=== PATIENT | female | born 1965 | race American Indian/Alaskan Native ===

== ENCOUNTER 2016-09-02 13:59 | Outpatient (CLI) | payer MEDICAID ==
--- NOTE | 2016-09-02 16:09 | XRAY Report ---
RIGHT HIP AND PELVIS: 09/02/2016 CLINICAL INDICATION: Right hip pain. FINDINGS: Frontal view of the hips and pelvis and frogleg lateral view of the right hip were obtaine d. There is moderate osteoarthritis of the right hip, with some remodeling of the femoral head. There is no evidence of acute fracture or dislocation. Tubal ligation clips and surgical clips are present . IMPRESSION: MODERATE OSTEOARTHRITIS OF THE RIGHT HIP, WITH MILD REMODELING OF THE RIGHT FEMORAL HEAD . JOB #: [id number] EXT JOB #:[id number]
== END 2016-09-02 14:00 | disposition home or self-care (01) ==
LOC: DI.N 13:59
PROVIDERS: ATTEND Family Medicine
DX: M16.11 Unilateral primary osteoarthritis, right hip (principal)

== ENCOUNTER 2016-12-14 09:26 | Outpatient (CLI) | payer MEDICAID ==
--- NOTE | 2016-12-14 12:43 | XRAY Report ---
THREE-VIEW RIGHT KNEE: 12/14/2016 CLINICAL INDICATION: Pain. FINDINGS: AP, lateral, sunrise views of the right knee demonstrate mild osteoarthritis, with small m arginal osteophytes. There is no evidence of fracture or dislocation. No effusion is present. IMPRESSION: MILD RIGHT KNEE OSTEOARTHRITIS. JOB #: [id number] EXT JOB #:[id number]
== END 2016-12-14 09:27 | disposition home or self-care (01) ==
LOC: DI.N 09:26
PROVIDERS: ATTEND Physician Assistant Medical
DX: M17.11 Unilateral primary osteoarthritis, right knee (principal)

== ENCOUNTER 2018-07-13 09:00 | Outpatient (CLI) | payer SELFPAY ==
--- NOTE | 2018-07-13 12:54 | XRAY Report ---
Reason: OSTEOARTHRITIS HIP,RIGHT Procedure Date: 07/13/2018 Accession Number: [id number] / [id number] Procedure: XRN - Hip w/Pelvis 2-3V RT CPT Code: FULL RESULT: EXAM: RIGHT HIP RADIOGRAPHY EXAM DATE: 07/13/2018 09:13 AM. CLINICAL HISTORY: Right hip osteoarthritis. COMPARISON: HIP W/PELVIS 2-3V RT 09/02/2016 2:16 PM. TECHNIQUE: 2 views. FINDINGS: Bones: Stable abnormal configuration of the right hip and lateral aspect of the right iliac bone. Posttraumatic and postsurgical changes involving the right femoral head, femoral neck and intratrochanteric region. Stable widening of the subcapital femoral neck. Joints: The left hip joint and sacroiliac joints are intact. Right hip joint space narrowing with femoral head and acetabular subchondral sclerosis, compatible with degenerative changes. Soft Tissues: Table postsurgical changes in the right hip soft tissues and in the pelvis. IMPRESSION: 1. Posttraumatic osteoarthritis of the right hip, unchanged when compared to the prior study. 2. No acute findings. 3. Other stable chronic post surgical changes. RADIA
== END 2018-07-13 09:01 | disposition home or self-care (01) ==
LOC: DI.N 09:00
PROVIDERS: ATTEND Physician Assistant Medical
DX: M16.51 Unilateral post-traumatic osteoarthritis, right hip (principal)

== ENCOUNTER 2018-10-01 | Outpatient (CLI) | payer MEDICAID | END 2018-10-01 23:59 | disposition home or self-care (01) ==

== ENCOUNTER 2019-02-07 10:22 | Outpatient (CLI) | payer MEDICAID | END 2019-02-07 10:23 | disposition short-term general hospital (02) | LOC: EMS 10:22 | PROVIDERS: ATTEND Surgery | DX: R07.9 Chest pain, unspecified (principal); M25.512 Pain in left shoulder; M54.9 Dorsalgia, unspecified; R05 Cough | CPT/HCPCS: A0425; A0429; A0999 ==

== ENCOUNTER 2019-10-07 03:48 | Outpatient (CLI) | payer MEDICAID | END 2019-10-07 03:49 | disposition short-term general hospital (02) | LOC: EMS 03:48 | PROVIDERS: ATTEND Surgery | DX: R10.32 Left lower quadrant pain (principal); R11.0 Nausea | CPT/HCPCS: A0425; A0427; A0999 ==

== ENCOUNTER 2019-10-23 07:22 | Outpatient (CLI) | payer MEDICAID | END 2019-10-23 07:23 | disposition critical access hospital (66) | LOC: EMS 07:22 | PROVIDERS: ATTEND Surgery | DX: R10.32 Left lower quadrant pain (principal); R10.11 Right upper quadrant pain | CPT/HCPCS: A0425; A0429; A0999 ==

== ENCOUNTER 2019-10-23 07:42 | Emergency (ER) | payer MEDICAID ==
[2019-10-23] MEDS ORDERED: KETOROLAC 30 MG/ML VIAL IVP STA (07:57)
[2019-10-23] MEDS ORDERED: ONDANSETRON 4 MG/2 ML VIAL IVP STA (07:57)
[2019-10-23] MEDS ORDERED: SODIUM CHLORIDE 0.9% 1,000 ML IV STA (07:57)
--- NOTE | 2019-10-23 08:00 | ED Physician Documentation ---
PD HPI ABD PAIN - Stated complaint Stated Complaint: FLANK PAIN - Chief complaint Chief Complaint: Abd Pain - History obtained from History obtained from: Patient - History of Present Illness Timing - onset: Today Timing - duration: Hours Timing - details: Abrupt onset, Still present Quality: Sharp, Pain Location: LUQ Radiation: Left flank Improved by: Meds Worsened by: Other (nothing) Associated symptoms: Nausea Similar symptoms before: Diagnosis (kidney stone on the left 8mm) Recently seen: Emergency Dept - Additional information Additional information: 54-year-old female seen earlier in the month for a 8 mm left kidney stone that was in the proximal ureter has had recurrence of her pain and she is presents to the emergency department today with ongoing renal colic. 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 - Present Medications Home Medications: Ambulatory Orders Medication Instructions Recorded Confirmed Sulfamethoxazole/Trimethoprim 1 each PO BID #20 tablet 04/02/14 [Bactrim Ds Tablet] cephALEXin [Keflex] 500 mg PO Q6H #40 capsule 04/02/14 Ondansetron Odt [Zofran] 4 mg TL Q6H PRN #10 tablet 10/05/19 Tamsulosin [Flomax] 0.4 mg PO DAILY #10 capsule 10/05/19 oxyCODONE [Roxicodone] 5 - 10 mg PO Q6H PRN #14 tablet 10/05/19 Docusate Sodium 250Mg Capsule 250 mg PO DAILY #20 capsule 10/23/19 [Colace 250Mg Capsule] Hydrocodone/Acetaminophen 1 - 2 each PO Q6H PRN #14 tablet 10/23/19 [Hydrocodone-Acetamin 5-325 mg] Tamsulosin [Flomax] 0.4 mg PO DAILY #7 capsule 10/23/19 - Allergies Allergies/Adverse Reactions: Allergies Allergy/AdvReac Type Severity Reaction Status Date / Time No Known Drug Allergies Allergy Verified 10/05/19 02:07 - Social History Does the pt smoke?: Yes Smoking Status: Current every day smoker Does the pt drink ETOH?: No - Immunizations Immunizations are current?: No - POLST Patient has POLST: No PD ED PE NORMAL - Vitals Vital signs reviewed: Yes (Hypertensive) - General General: Alert and oriented X 3, Well developed/nourished, Other (Patient appears to be in pain) - HEENT HEENT: Atraumatic, PERRL, EOMI - Neck Neck: Supple, no meningeal sign, No bony TTP - Cardiac Cardiac: RRR, No murmur - Respiratory Respiratory: No respiratory distress, Clear bilaterally - Abdomen Abdomen: Soft, Non tender - Back Back: No CVA TTP, No spinal TTP - Derm Derm: Normal color, Warm and dry, No rash - Extremities Extremities: No deformity, No edema, No calf tenderness / cord - Neuro Neuro: Alert and oriented X 3, 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, No motor deficit, No sensory deficit, Normal speech Eye Opening: Spontaneous Motor: Obeys Commands Verbal: Oriented GCS Score: 15 - Psych Psych: Normal mood, Normal affect Results - Vitals Vitals: Vital Signs - 24 hr 10/23/19 10/23/19 10/23/19 07:48 09:06 11:00 Temperature 36.4 C L Heart Rate 75 87 80 Respiratory 21 12 13 Rate Blood Pressure 153/96 H 161/81 H 150/91 H O2 Saturation 100 95 96 10/23/19 12:22 Temperature 37.0 C Heart Rate 68 Respiratory 17 Rate Blood Pressure 154/83 H O2 Saturation 98 Oxygen O2 Source Room air - Labs Labs: Laboratory Tests 10/23/19 10/23/19 10/23/19 07:59 07:59 09:55 WBC 7.1 RBC 4.78 Hgb 13.1 Hct 41.4 MCV 86.6 MCH 27.4 MCHC 31.6 L RDW 14.6 Plt Count 219 MPV 9.9 Neut # (Auto) 4.6 Lymph # (Auto) 1.8 [place] # (Auto) 0.5 Eos # (Auto) 0.1 Baso # (Auto) 0.0 Absolute Nucleated RBC 0.00 Nucleated RBC % 0.0 Sodium 138 Potassium 3.4 L Chloride 105 Carbon Dioxide 23 Anion Gap 10.0 BUN 12 Creatinine 0.6 Estimated GFR (MDRD) 105 Glucose 119 H Calcium 8.6 Total Bilirubin 0.9 AST 18 ALT 20 Alkaline Phosphatase 62 Total Protein 6.9 Albumin 3.8 Globulin 3.1 Albumin/Globulin Ratio 1.2 Lipase 35 Urine Color YELLOW Urine Clarity CLOUDY Urine pH 7.0 Ur Specific Rawlings 1.020 Urine Protein NEGATIVE Urine Glucose (UA) NEGATIVE Urine Ketones NEGATIVE Urine Occult Blood LARGE H Urine Nitrite NEGATIVE Urine Bilirubin NEGATIVE Urine Urobilinogen 0.2 (NORMAL) Ur Leukocyte Esterase NEGATIVE Urine RBC TNTC H Urine WBC 0-3 Ur Squamous Epith Cells RARE Squamous Urine Bacteria Rare Ur Microscopic Review INDICATED Urine Culture Comments NOT INDICATED Urine HCG, Qual NEGATIVE - Rads (name of study) kub Radiology: Prelim report reviewed (Impression: Distal migration of previously seen left ureteral calculus, now at the distal left ureter ureter.), EMP read indepedently, See rad report Procedures - Bedside sono Bedside sono by EMP: With use bedside ultrasound the left kidney is imaged it is sonographically nontender there is obvious and significant hydronephrosis present PD MEDICAL DECISION MAKING - ED course Complexity details: reviewed old records, reviewed results, re-evaluated patient, considered differential, d/w patient ED course: 54-year-old female with recurrent pain has a large stone 8 mm that is now in the distal ureter right at the UVJ. She is administered saline and Toradol as well as Dilaudid with improvement in her pain. I discussed with the patient the need to call the urologist today as she still may need to have the stone removed. She provided further pain medication and hydration. Departure - Departure Disposition: 01 Home, Self Care Clinical Impression: Ureterolithiasis Condition: Stable Instructions: ED Stone Renal W Colic Follow-Up: Mary Cline ARNP, EQUIPMENT INSTALLATION PROFESSIONAL-C [Primary Care Provider] - Karl Miner MD [Provider Admit Priv/Credential] - Prescriptions: Docusate Sodium 250Mg Capsule [Colace 250Mg Capsule] 250 mg PO DAILY #20 capsule Tamsulosin [Flomax] 0.4 mg PO DAILY #7 capsule Hydrocodone/Acetaminophen [Hydrocodone-Acetamin 5-325 mg] 1 - 2 each PO Q6H PRN #14 tablet PRN Reason: Pain Discharge Date/Time: 10/23/19 12:22
[2019-10-23 08:17] LABS: BASOPHILS % (AUTO) 0.4 %; EOSINOPHILS # (AUTO) 0.1 10^3/uL (0.0-0.7); EOSINOPHILS % (AUTO) 1.7 %; HGB - HEMOGLOBIN 13.1 g/dL (12.0-16.0); LYMPHOCYTES # (AUTO) 1.8 10^3/uL (1.5-3.5); LYMPHOCYTES % (AUTO) 25.6 %; MEAN CORPUSCULAR HEMOGLOBIN 27.4 pg (27.0-31.0); MEAN CORPUSCULAR HGB CONC 31.6 g/dL (32.0-36.0); MEAN CORPUSCULAR VOLUME 86.6 fL (81.0-99.0); MEAN PLATELET VOLUME 9.9 fL (7.9-10.8); MONOCYTES # (AUTO) 0.5 10^3/uL (0.0-1.0); MONOCYTES % (AUTO) 6.5 %; NEUTROPHILS # (AUTO) 4.6 10^3/uL (1.5-6.6); NEUTROPHILS % (AUTO) 65.5 %; PLT - PLATELET COUNT 219 10^3/uL (130-450); RED BLOOD COUNT 4.78 10^6/uL (4.20-5.40); RED CELL DISTRIBUTION WIDTH 14.6 % (12.0-15.0); WHITE BLOOD COUNT 7.1 x10^3/uL (4.8-10.8)
[2019-10-23 08:31] LABS: ALBUMIN 3.8 g/dL (3.2-5.5); ALBUMIN/GLOBULIN RATIO 1.2 (1.0-2.2); BILIRUBIN,TOTAL 0.9 mg/dL (0.2-1.0); CALCIUM 8.6 mg/dL (8.5-10.3); CREATININE 0.6 mg/dL (0.4-1.0); TOTAL PROTEIN 6.9 g/dL (6.7-8.2)
--- NOTE | 2019-10-23 08:46 | XRAY Report ---
PROCEDURE: Abdomen 1 View X-Ray INDICATIONS: 8mm stone on left still there TECHNIQUE: 1 view of the abdomen were acquired. COMPARISON: 10/05/2019 CT abdomen and pelvis FINDINGS: Previously seen calculus in the proximal left ureter has migrated distally, now projecting over the d istal ureter adjacent to the left sacral ala and left sacroiliac joint. The calculus measures approxi mately 7 mm. IMPRESSION: Distal migration of previously seen left ureteral calculus, now at the distal left urete r. Reviewed by: Zeeshan Hartman MD on 10/23/2019 8:45 AM PDT Approved by: Zeeshan Hartman MD on 10/23/2019 8:45 AM PDT Station ID: [id number]
[2019-10-23] MEDS ORDERED: HYDROmorphone 1 MG/ML CARPUJECT IVP STA (08:48)
[2019-10-23 10:14] LABS: BILIRUBIN,URINE NEGATIVE (NEGATIVE); GLUCOSE, URINE (UA) NEGATIVE (NEGATIVE); KETONES,URINE (UA) NEGATIVE (NEGATIVE); LEUKOCYTE ESTERASE, URINE NEGATIVE (NEGATIVE); NITRITE,URINE NEGATIVE (NEGATIVE); OCCULT BLOOD,URINE LARGE (NEGATIVE); PROTEIN,URINE NEGATIVE (NEGATIVE); UROBILINOGEN,URINE 0.2 (NORMAL) E.U./dL (NORMAL)
[2019-10-23 10:24] LABS: CLARITY,URINE CLOUDY (CLEAR); HCG UR QUAL NEGATIVE
[2019-10-23 11:05] LABS: RBC,URINE TNTC /HPF (0-5); SQUAMOUS EPITHELIAL CELL,UR RARE Squamous (<= Few)
[2019-10-23 11:06] LABS: BACTERIA,URINE Rare /HPF (None Seen)
[2019-10-23 12:25] VITALS: BP 154/83
== END 2019-10-23 12:22 | disposition home or self-care (01) ==
LOC: EDUNIT# → ED 07:42
DX: N20.1 Calculus of ureter (principal); F17.200 Nicotine dependence, unspecified, uncomplicated
CPT/HCPCS: 36415; 74018; 80053; 81001; 81025; 83690; 85025; 96361; 96374; 96375; 99284; J1170; 81003; 87086

== ENCOUNTER 2020-08-17 08:00 | Outpatient (CLI) | payer MEDICAID ==
[2020-08-17 18:03] LABS: BASOPHILS % (AUTO) 0.7 %; EOSINOPHILS # (AUTO) 0.1 10^3/uL (0.0-0.7); EOSINOPHILS % (AUTO) 2.3 %; HGB - HEMOGLOBIN 14.1 g/dL (12.0-16.0); LYMPHOCYTES # (AUTO) 2.1 10^3/uL (1.5-3.5); LYMPHOCYTES % (AUTO) 35.6 %; MEAN CORPUSCULAR HEMOGLOBIN 27.5 pg (27.0-31.0); MEAN CORPUSCULAR HGB CONC 30.7 g/dL (32.0-36.0); MEAN CORPUSCULAR VOLUME 89.8 fL (81.0-99.0); MEAN PLATELET VOLUME 10.6 fL (7.9-10.8); MONOCYTES # (AUTO) 0.3 10^3/uL (0.0-1.0); MONOCYTES % (AUTO) 5.2 %; NEUTROPHILS # (AUTO) 3.4 10^3/uL (1.5-6.6); PLT - PLATELET COUNT 244 10^3/uL (130-450); RED BLOOD COUNT 5.12 10^6/uL (4.20-5.40); RED CELL DISTRIBUTION WIDTH 15.1 % (12.0-15.0)
[2020-08-17 18:24] LABS: ALBUMIN 4.1 g/dL (3.2-5.5); ALBUMIN/GLOBULIN RATIO 1.4 (1.0-2.2); ALKALINE PHOSPHATASE 52 IU/L (42-121); ALT ALANINE AMINOTRANSFERASE 26 IU/L (10-60); AST ASPARTATE AMINOTRANSFERASE 23 IU/L (10-42); BILIRUBIN,TOTAL 1.1 mg/dL (0.2-1.0); BUN - BLOOD UREA NITROGEN 14 mg/dL (6-20); CARBON DIOXIDE - CO2 23 mmol/L (21-32); CHLORIDE 104 mmol/L (101-111); CHOL/HDL RATIO 4.3 (<4.4); CHOLESTEROL 179 mg/dL; CREATININE 0.6 mg/dL (0.4-1.0); GFR - MDRD 105 (>89); GLUCOSE 100 mg/dL (70-100); HDL CHOLESTEROL 42 mg/dL; LDL CHOLESTEROL,CALCULATED 106 mg/dL; LDL/HDL RATIO 2.5 (<4.4); POTASSIUM 4.1 mmol/L (3.5-5.0); SODIUM 137 mmol/L (135-145); TRIGLYCERIDES 153 mg/dL; VLDL CHOLESTEROL 31 mg/dL
[2020-08-17 18:36] LABS: THYROID STIMULATING HORMONE 1.08 uIU/mL (0.34-5.60)
[2020-08-17 20:39] LABS: ESTIMATED AVERAGE GLUCOSE 140 mg/dL (70-100); HEMOGLOBIN A1c% 6.5 % (4.27-6.07)
== END 2020-08-17 23:59 | disposition home or self-care (01) ==
LOC: LAB.WCP 08:00
PROVIDERS: ATTEND Family Medicine
DX: Z00.00 Encounter for general adult medical examination without abnormal findings (principal); N23 Unspecified renal colic; R73.9 Hyperglycemia, unspecified; M25.559 Pain in unspecified hip; I10 Essential (primary) hypertension; F10.10 Alcohol abuse, uncomplicated
CPT/HCPCS: 36415; 80053; 80061; 83036; 83721; 84443; 85025

== ENCOUNTER 2020-10-09 10:13 | Outpatient (CLI) | payer MEDICAID | END 2020-10-09 10:14 | disposition home or self-care (01) | LOC: LAB 10:13 | PROVIDERS: ATTEND Family Medicine | DX: Z53.9 Procedure and treatment not carried out, unspecified reason (principal); M12.851 Other specific arthropathies, not elsewhere classified, right hip ==

== ENCOUNTER 2020-10-09 10:21 | Outpatient (CLI) | payer MEDICAID ==
--- NOTE | 2020-10-09 15:08 | XRAY Report ---
PROCEDURE: Hip w/Pelvis 2-3V RT INDICATIONS: ARTHRITIS, RIGHT HIP TECHNIQUE: AP pelvis with lateral view(s) of the right hip(s). COMPARISON: X-ray pelvis and hip 07/13/2018 FINDINGS: Bones: No fractures or dislocations. Pelvic ring appears intact. No suspicious bony lesions. Lyn re degenerative disc space narrowing is noted on the right with mild flattening of the femoral head a nd sclerosis. This is progressive compared to prior exam. Moderate to severe left hip degenerative na rrowing is present. This is relatively stable compared to prior exam. Bilateral osteophytes are prese nt. Soft tissues: The visualized bowel gas pattern is normal. No suspicious soft tissue calcifications. 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 Reviewed by: Rosa Lara MD on 10/09/2020 3:07 PM PDT Approved by: Rosa Lara MD on 10/09/2020 3:07 PM PDT Station ID: [id number]
== END 2020-10-09 10:22 | disposition home or self-care (01) ==
LOC: DI.N 10:21
PROVIDERS: ATTEND Family Medicine
DX: M16.0 Bilateral primary osteoarthritis of hip (principal)

== ENCOUNTER 2021-02-15 14:51 | Outpatient (CLI) | payer MEDICAID | END 2021-02-15 23:59 | disposition home or self-care (01) | LOC: LAB.N 14:51 | PROVIDERS: ATTEND Family Medicine | DX: J06.9 Acute upper respiratory infection, unspecified (principal); Z20.822 Contact with and (suspected) exposure to COVID-19 | CPT/HCPCS: 87275; 87276 ==

== ENCOUNTER 2022-06-15 12:19 | Outpatient (CLI) | payer MEDICAID ==
[2022-06-15 20:29] LABS: ESTIMATED AVERAGE GLUCOSE 131 mg/dL (70-100); HEMOGLOBIN A1c% 6.2 % (4.27-6.07)
== END 2022-06-15 12:20 | disposition home or self-care (01) ==
LOC: LAB.N 12:19
PROVIDERS: ATTEND Nurse Practitioner
DX: E11.9 Type 2 diabetes mellitus without complications (principal)
CPT/HCPCS: 36415; 83036

== ENCOUNTER 2023-01-17 11:12 | Outpatient (CLI) | payer MEDICAID ==
[2023-01-17 19:01] LABS: ALBUMIN 4.2 g/dL (3.2-5.5); ALBUMIN/GLOBULIN RATIO 1.8 (1.0-2.2); ALKALINE PHOSPHATASE 58 IU/L (42-121); ALT ALANINE AMINOTRANSFERASE 28 IU/L (10-60); AST ASPARTATE AMINOTRANSFERASE 22 IU/L (10-42); BILIRUBIN,TOTAL 0.8 mg/dL (0.2-1.0); BUN - BLOOD UREA NITROGEN 19 mg/dL (6-20); CALCIUM 9.6 mg/dL (8.5-10.3); CARBON DIOXIDE - CO2 26 mmol/L (21-32); CHLORIDE 109 mmol/L (101-111); CHOL/HDL RATIO 3.7 (<4.4); CHOLESTEROL 171 mg/dL; CREATININE 0.6 mg/dL (0.6-1.3); GFR - MDRD 104 (>89); GLUCOSE 104 mg/dL (74-104); HDL CHOLESTEROL 46 mg/dL; LDL CHOLESTEROL,CALCULATED 100 mg/dL; LDL/HDL RATIO 2.2 (<4.4); POTASSIUM 4.1 mmol/L (3.5-4.5); SODIUM 141 mmol/L (135-145); TOTAL PROTEIN 6.5 g/dL (6.4-8.9); TRIGLYCERIDES 125 mg/dL (48-352); VLDL CHOLESTEROL 25 mg/dL
[2023-01-17 19:11] LABS: THYROID STIMULATING HORMONE 1.12 uIU/mL (0.34-5.60)
[2023-01-17 21:16] LABS: ESTIMATED AVERAGE GLUCOSE 143 mg/dL (70-100); HEMOGLOBIN A1c% 6.6 % (4.27-6.07)
== END 2023-01-17 11:13 | disposition home or self-care (01) ==
LOC: LAB.N 11:12
PROVIDERS: ATTEND Nurse Practitioner
DX: E11.9 Type 2 diabetes mellitus without complications (principal); E78.5 Hyperlipidemia, unspecified; R53.83 Other fatigue
CPT/HCPCS: 36415; 80050; 80061; 82043; 82570; 83036; 83721

== ENCOUNTER 2023-01-17 11:46 | Outpatient (CLI) | payer MEDICAID ==
--- NOTE | 2023-01-18 15:35 | Mammography Report ---
BILATERAL DIGITAL SCREENING MAMMOGRAM 3D/2D: 01/17/2023 CLINICAL: Routine screening. Comparison is made to exam dated: 11/20/2014 mammogram - [facility]. There are scattered areas of fibroglandular density in both breasts (category b / 25%-50% glandular t issue). No significant masses, calcifications, or other findings are seen in either breast. There has been no significant interval change. IMPRESSION: NEGATIVE There is no mammographic evidence of malignancy. A 1 year screening mammogram is recommended. Based on the Tyrer Cuzick model (a risk assessment model) the patients lifetime risk is 6.6% and her 10 year risk is 2.0%. According to the ACR, ACS, and NCCN guidelines, an annual breast MRI exam juan g with mammogram is recommended if the patients lifetime risk is 20% or greater. This exam was interpreted at Station ID: [id number]. NOTE: For mammograms, a report in lay terms will be sent to the patient. Approximately 15% of breast malignancies will not be visualized mammographically. In the management of a palpable breast mass, a negative mammogram must not discourage biopsy of a clinically suspicious lesion. Electronically Signed By: Mor bal/triston:01/17/2023 16:41:08 letter sent: No_Letter ACR BI-RADS Category 1: Negative 3341F PARENCHYMAL PATTERN: (A) - The breast(s) demonstrate(s) scattered fibroglandular densities. BI-RADS CATEGORY: (1) - 1 Mammogram [id number] 1 year screening LATERALITY: (B)
== END 2023-01-17 11:47 | disposition home or self-care (01) ==
LOC: DI.N 11:46
PROVIDERS: ATTEND Nurse Practitioner
DX: Z12.31 Encounter for screening mammogram for malignant neoplasm of breast (principal); R92.323 Mammographic fibroglandular density, bilateral breasts; E11.9 Type 2 diabetes mellitus without complications; E78.5 Hyperlipidemia, unspecified; R53.83 Other fatigue
CPT/HCPCS: 36415; 80050; 80061; 82043; 82570; 83036; 83721